=== PATIENT | male | born 1995 | race American Indian/Alaskan Native ===

== ENCOUNTER 2021-06-30 10:25 | Emergency (ER) | payer SELFPAY ==
[2021-06-30] MEDS ORDERED: BUTALB/ACETAMINOPHEN/CAFFEINE TAB PO ONE (10:36)
[2021-06-30] MEDS ORDERED: ONDANSETRON 4 MG/2 ML INJ IV ONE (10:44)
[2021-06-30] MEDS ORDERED: MORPHINE 4 MG/1 ML INJ IV ONE (10:44)
--- NOTE | 2021-06-30 10:47 | Emergency Department Report ---
ED Abdominal Pain HPI - General Chief Complaint: Abdominal Pain Stated Complaint: ABD PAIN Time Seen by Provider: 06/30/21 10:36 Source: patient Mode of arrival: Stretcher Limitations: No Limitations - History of Present Illness Initial Comments: Patient is 25 years old male with no significant past medical history. Patient brought to the emergency room via EMS from home for evaluation of left flank pain radiated down to his left lower quadrant area. Patient stated that pain started all of a sudden. Patient describes his pain as sharp, 10 out of 10. Patient denied any nausea or vomiting. No diarrhea.Similar symptoms. MD Complaint: abdominal pain, flank pain -: This morning Location: L flank Radiation: suprapubic Migration to: no migration Severity scale (0 -10): 8 Quality: sharp - Related Data Allergies Allergy/AdvReac Type Severity Reaction Status Date / Time No Known Allergies Allergy Unverified 06/30/21 10:33 ED Review of Systems ROS: Stated complaint: ABD PAIN Other details as noted in HPI Comment: All other systems reviewed and negative Constitutional: denies: chills, fever Respiratory: denies: cough, shortness of breath, SOB with exertion Cardiovascular: denies: chest pain, palpitations Gastrointestinal: abdominal pain. denies: nausea, vomiting, diarrhea, constipation, hematemesis, melena, hematochezia Musculoskeletal: back pain Neurological: denies: headache, weakness, numbness, paresthesias, confusion ED Physical Exam - General Limitations: No Limitations General appearance: alert, in no apparent distress - Head Head exam: Present: atraumatic, normocephalic, normal inspection - Eye Eye exam: Present: normal appearance - ENT ENT exam: Present: normal exam, normal orophraynx, mucous membranes moist - Neck Neck exam: Present: normal inspection, full ROM. Absent: tenderness, meningismus - Respiratory Respiratory exam: Present: normal lung sounds bilaterally - Cardiovascular Cardiovascular Exam: Present: regular rate, normal rhythm, normal heart sounds - GI/Abdominal GI/Abdominal exam: Present: soft, normal bowel sounds. Absent: distended, tenderness, guarding, rebound, rigid, organomegaly, mass, bruit, pulsatile mass, hernia - Extremities Exam Extremities exam: Present: normal inspection, full ROM, normal capillary refill. Absent: tenderness - Back Exam Back exam: Present: normal inspection, full ROM. Absent: CVA tenderness (R), CVA tenderness (L) - Neurological Exam Neurological exam: Present: alert, oriented X3, CN II-XII intact - Psychiatric Psychiatric exam: Present: normal mood - Skin Skin exam: Present: warm, intact, normal color ED Course Vital Signs 06/30/21 06/30/21 06/30/21 10:32 10:44 12:55 Temperature 97.8 F Pulse Rate 60 88 Respiratory 22 18 16 Rate Blood Pressure 123/84 90/62 [Right] O2 Sat by Pulse 100 98 95 Oximetry ED Medical Decision Making - Lab Data Result diagrams: 06/30/21 11:08 06/30/21 11:08 - Radiology Data Radiology results: report reviewed - Medical Decision Making Patient is 25 years old male with no significant past medical history. Patient brought to the emergency room via EMS from home for evaluation of left flank pain radiated down to his left lower quadrant area. Patient stated that pain started all of a sudden. Patient describes his pain as sharp, 10 out of 10. Patient denied any nausea or vomiting. No diarrhea.Similar symptoms. Patient remained stable in the ER. Labs reviewed and showed leukocytosis of 16. Patient received Rocephin [address] abdomen and pelvis with IV contrast is unremarkable. Urine is positive for UTI. Patient given prescription for ciprofloxacin and advised to follow-up with his primary doctor in the next 2 to 3 days and to return to the ER if he develop any new symptoms. Critical care attestation.: If time is entered above; I have spent that time in minutes in the direct care of this critically ill patient, excluding procedure time. ED Disposition Clinical Impression: Acute abdominal pain, UTI (urinary tract infection), Acute nausea with nonbilious vomiting Disposition: HOME / SELF CARE / HOMELESS Is pt being admited?: No Condition: Stable Instructions: Nausea and Vomiting, Adult, Urinary Tract Infection, Adult, [id number], Abdominal Pain, Adult Referrals: PRIMARY CARE,MD [Primary Care Provider] - 3-5 Days
[2021-06-30 11:18] LABS: Basophils # (Auto) 0.1 K/mm3 (0.0-0.1); Basophils % (Auto) 0.5 % (0.0-1.8); Eosinophils # (Auto) 0.4 K/mm3 (0.0-0.4); Eosinophils % (Auto) 2.2 % (0.0-4.3); Hematocrit 39.8 % (35.5-45.6); Hemoglobin 13.5 gm/dl (11.8-15.2); Lymphocytes % (Auto) 18.7 % (13.4-35.0); Mean Corpuscular HGB Conc 34 % (32-34); Mean Corpuscular Volume 86 fl (84-94); Monocytes # (Auto) 0.6 K/mm3 (0.0-0.8); Monocytes % (Auto) 3.9 % (0.0-7.3); Platelet Count 209 K/mm3 (140-440); Red Cell Distribution Width 13.9 % (13.2-15.2)
[2021-06-30 12:01] LABS: Alanine Aminotransferase 30 units/L (7-56); Albumin 4.6 g/dL (3.9-5); BUN/Creatinine Ratio 12; Blood Urea Nitrogen 11 mg/dL (9-20); Calcium 9.6 mg/dL (8.4-10.2); Hemolysis Index 37
[2021-06-30 12:23] LABS: Bilirubin,Direct < 0.2 mg/dL (0-0.2)
[2021-06-30 13:11] LABS: Bilirubin,Urine NEG (Negative); Blood,Urine LG (Negative); Color,Urine Yellow (Yellow); Mucus,Urine 2+ /HPF; Urobilinogen,Urine < 2.0 mg/dL (<2.0)
[2021-06-30 13:13] LABS: RBC,Urine > 182.0 /HPF (0.0-6.0)
[2021-06-30] MEDS ORDERED: SODIUM CHLORIDE 0.9% 1000 ML 1,000 ML IV ONE (13:30)
--- NOTE | 2021-06-30 13:52 | Cat Scan Report ---
CT abdomen pelvis w con INDICATION / CLINICAL INFORMATION: abdominal pain 100 ML OMNI 300. TECHNIQUE: Axial CT imaging of abdomen and pelvis was obtained with IV contrast. Coronal and sagittal reformatte d imaging obtained and reviewed. All CT scans at this location are performed using CT dose reduction for ALARA by means of automated exposure control. COMPARISON: None available. FINDINGS: CT abdomen with IV contrast demonstrates normal appearance of the liver, spleen, pancreas, kidneys, a nd adrenal glands. Gallbladder is present and without obvious abnormality. No biliary dilatation is p resent. Abdominal aorta and other main vascular structures are unremarkable. CT pelvis with contrast demonstrates normal appearance of the appendix within the right lower quadran t. No pelvic mass, free fluid, or focal inflammatory changes noted. Visualized lung bases are clear. Review of osseous structures is unremarkable. No significant skeletal abnormality is identified. IMPRESSION: 1. No acute finding within the abdomen or pelvis. Signer Name: Monica Gomez MD Signed: 06/30/2021 1:48 PM Workstation Name: [id number]
[2021-06-30] MEDS ORDERED: cefTRIAXone/NS 1 GM/50 ML 1 GM/50 ML BAG IV ONE (14:02)
[2021-06-30 14:56] VITALS: BP 109/68
--- NOTE | 2021-07-01 11:03 | Electrocardiograph Report ---
[facility] Test Date: 2021-06-30 Test Time: 12:20:38 Pat Name: ADWOA PAGE Department: Room: Gender: M [employer] Professor: CURTIS : 1995 Requested By: MARLIN BALLARD Order Number: [id number] Reading MD: Josh Manuel Measurements Intervals [place] Rate: 67 P: 71 CA: 162 QRS: 61 QRSD: 83 T: 53 QT: 413 QTc: 435 Interpretive Statements Sinus rhythm ST elev, probable normal early repol pattern No previous ECG available for comparison Electronically Signed On 07-01-2021 11:02:45 EDT by Josh Manuel
== END 2021-06-30 15:18 | disposition home or self-care (01) ==
LOC: ED 10:25
DX: R10.9 Unspecified abdominal pain (principal); N39.0 Urinary tract infection, site not specified; R11.2 Nausea with vomiting, unspecified
CPT/HCPCS: 36415; 74177; 80048; 80076; 81001; 83690; 85025; 93005; 96361; 96365; 96375; 99284; J0696; J2270; J2405; Q9967